=== PATIENT | male | born 1960 | race Caucasian/White ===

== ENCOUNTER 2017-07-07 23:13 | Emergency (ER) | payer OTHER ==
[~2017-07-07] VITALS: Ht 165.1 cm; Wt 68.0 kg
[2017-07-07 23:54] LABS: CREATININE 1.5 mg/dL (0.6-1.3); POTASSIUM 3.6 mEq/L (3.7-5.4)
[2017-07-08 00:07] LABS: INTER. NORMALIZED RATIO 1.1; PROTHROMBIN TIME 11.9 SEC (10.2-12.9)
[2017-07-08 00:09] LABS: PTT 27.7 SEC (25-37)
[2017-07-08 00:11] LABS: CHLORIDE 107 mEq/L (99-109); POTASSIUM 3.9 mEq/L (3.7-5.4); SODIUM 141 mEq/L (136-147)
[2017-07-08 00:12] LABS: HEMATOCRIT 44.5 % (38.0-50.0); MCH 30.7 PG (29.0-34.0); MCHC 31.7 G/DL (30.0-36.0); MCV 96.9 FL (86-99); PLATELET COUNT 106 K/uL (156-360); RBC DIS.WIDTH-CV 13.3 % (11.8-14.6); RBC DIS.WIDTH-SD 47.8 % (39-53); RED BLOOD COUNT 4.59 M/uL (4.00-5.50); WHITE BLOOD COUNT 9.1 K/uL (4.1-10.2)
[2017-07-08 00:13] LABS: GLUCOSE 212 mg/dL (70-99)
[2017-07-08 00:15] LABS: ANION GAP 26 MEQ/L (2-14); TOTAL BILIRUBIN 0.4 mg/dL (0.0-1.0)
[2017-07-08 00:17] LABS: ALKALINE PHOSPHATASE 109 IU/L (3-129); GFR ESTIMATE (CALCULATED) 48 mL/min/
[2017-07-08 00:18] LABS: UREA NITROGEN (BUN) 21 mg/dL (9-23)
[2017-07-08 00:26] LABS: TROP-I INTERPRETATION NEGATIVE; TROPONIN-I 0.01 ng/mL (0.0-0.30)
[2017-07-08 00:59] VITALS: BP 130/74
== END 2017-07-08 03:04 | disposition short-term general hospital (02) ==
LOC: EME → EDBD 23:13 → EME 07-08 03:04
PROVIDERS: Emergency Medicine
DX: I71.01 Dissection of thoracic aorta (principal); I77.73 Dissection of renal artery; I77.79 Dissection of other specified artery; R20.0 Anesthesia of skin; M54.5 Low back pain; M79.602 Pain in left arm; I10 Essential (primary) hypertension; F17.200 Nicotine dependence, unspecified, uncomplicated
CPT/HCPCS: 71275; 74174; 80047; 80053; 83605; 84484; 85027; 85610; 85730; 93005; 99281; 99284; J2270; J7030